=== PATIENT | female | born 1950 | race Caucasian/White ===

== ENCOUNTER 2021-09-18 09:30 | Outpatient (RCR) | payer MEDICARE, SELFPAY | END 2021-10-01 14:09 | disposition home or self-care (01) | PROVIDERS: PCP Family Medicine; Visit Provider Internal Medicine Pulmonary Disease | DX: J44.9 Chronic obstructive pulmonary disease, unspecified (principal) | CPT/HCPCS: 93798; 94625 ==

== ENCOUNTER 2023-11-10 10:45 | Inpatient (IN) | payer OTHER, MEDICARE, SELFPAY ==
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
[2023-11-10 11:00] VITALS: BP 144/58; PULSE 78; RESP 16; TEMP 36.2; O2SAT 95
[2023-11-10 11:31] VITALS: BMI 44.8
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
[2023-11-10] MEDS: methocarbamoL 500 MG TABLET PO ×2 (13:03→16:34)
[2023-11-10 16:00] VITALS: BP 125/62; PULSE 78; RESP 16; TEMP 36.2; O2SAT 95
[2023-11-10] MEDS: GABAPENTIN 100 MG CAPSULE PO ×2 (16:32→21:43)
[2023-11-10] MEDS: carBAMazepine 200 MG TABLET 100 MG BY MOUTH (16:32)
[2023-11-10] MEDS: traMADol HCL (*CRX) 50 MG TABLET PO ×2 (16:33→22:50)
[2023-11-10] MEDS: lisinopriL 10 MG TABLET BY MOUTH (16:34)
[2023-11-10] MEDS: ARFORMOTEROL TARTRATE 15 MCG/2 ML NEB INHALATION (16:38)
[2023-11-10] MEDS: BUDESONIDE RESPULE NEB 0.5 MG/2 ML AMP 0.25 MG INHALATION (16:38)
[2023-11-10 17:00] VITALS: PULSE 78; RESP 16; O2SAT 95
--- NOTE | 2023-11-10 17:41 | PC.NURSE ---
Ornamental Painter received report from Nurse Sparrow at [facility].
[2023-11-10 17:45] VITALS: PULSE 84; RESP 16; O2SAT 98
[2023-11-10] MEDS: azaTHIOprine 25 MG TABLET 75 MG BY MOUTH (21:43)
[2023-11-10] MEDS: QUEtiapine FUMARATE 25 MG TABLET 50 MG BY MOUTH (21:43)
[2023-11-11] VITALS (9 sets, daily range): BP systolic 101–140; BP diastolic 42–65; PULSE 67–74; RESP 13–20; TEMP 35.9–36.6; O2SAT 94–100
[2023-11-11] MEDS: BUDESONIDE RESPULE NEB 0.5 MG/2 ML AMP 0.25 MG INHALATION ×2 (05:37→18:00)
[2023-11-11] MEDS: ARFORMOTEROL TARTRATE 15 MCG/2 ML NEB INHALATION ×2 (05:48→18:01)
[2023-11-11] MEDS: LEVOTHYROXINE SODIUM 112 MCG TABLET PO (06:15)
[2023-11-11] MEDS: GABAPENTIN 100 MG CAPSULE PO ×3 (06:15→21:54)
[2023-11-11] MEDS: predniSONE 1 MG TABLET 4 MG BY MOUTH (08:18)
[2023-11-11] MEDS: methocarbamoL 500 MG TABLET PO ×3 (08:19→17:12)
[2023-11-11] MEDS: buPROPion HCL XL (24 HR) 150 MG TABCR 450 MG PO (08:19)
[2023-11-11] MEDS: amLODIPine BESYLATE 5 MG TABLET PO (08:20)
[2023-11-11] MEDS: lisinopriL 10 MG TABLET BY MOUTH ×2 (08:21→17:12)
[2023-11-11] MEDS: SPIRONOLACTONE 25 MG TABLET BY MOUTH (08:21)
[2023-11-11] MEDS: carBAMazepine 200 MG TABLET 100 MG BY MOUTH ×2 (08:21→17:11)
[2023-11-11] MEDS: traMADol HCL (*CRX) 50 MG TABLET PO (08:22)
[2023-11-11] MEDS: PANTOPRAZOLE 40 MG TABLET PO (08:23)
--- NOTE | 2023-11-11 10:20 | PM.EVENT ---
Event Note Event Note Event Note: No new complaints today. Patient had questions about timing her Neurontin with her Synthroid in the morning as it helps her get move in in the morning. We will discuss this with pharmacy to see if that can be arranged. We added senna and Colace once daily for constipation and MiraLax p.r.n..Ursodil continued per patient request this is a non formulary medication and family will be bringing that in today for her use.
[2023-11-11] MEDS: ACETAMINOPHEN 500 MG TABLET 1000 MG BY MOUTH ×2 (13:36→21:54)
[2023-11-11] MEDS: oxyCODONE HCL (*CRX) 5 MG TAB IR PO (14:30)
--- NOTE | 2023-11-11 15:54 | PC.NURSE ---
Wound care completed on patietn's legs. RLE wound is approximately quarter sized and shows signs of new tissue granulation. Wet to dry dressing reapplied and mepilex applied for comfort. LLE wound had a simple dry dressing with clear dressing over it. Wound is superficial and draining moderate amount of brown fluid and has some yellowing in the wound bed. Conduit Cleaner cleansed wound well with NS and clean gauze. Conduit Cleaner then applied a piece of Mepilex AG to the wound bed and covered with dry Mepilex. Patient tolerated wound care well.
--- NOTE | 2023-11-11 16:00 | PC.NURSE ---
Charge nurse notified of observations made of patient's wounds
[2023-11-11] MEDS: azaTHIOprine 25 MG TABLET 75 MG BY MOUTH (21:54)
[2023-11-11] MEDS: QUEtiapine FUMARATE 25 MG TABLET 50 MG BY MOUTH (21:54)
[2023-11-12] MEDS: GABAPENTIN 100 MG CAPSULE PO ×3 (06:00→21:30)
[2023-11-12] MEDS: LEVOTHYROXINE SODIUM 112 MCG TABLET PO (06:00)
[2023-11-12 08:00] VITALS: BP 114/57; PULSE 67; RESP 18; TEMP 35.8; O2SAT 99
[2023-11-12] MEDS: amLODIPine BESYLATE 5 MG TABLET PO (09:17)
[2023-11-12] MEDS: SPIRONOLACTONE 25 MG TABLET BY MOUTH (09:17)
[2023-11-12] MEDS: traMADol HCL (*CRX) 50 MG TABLET PO (09:18)
[2023-11-12] MEDS: methocarbamoL 500 MG TABLET PO ×3 (09:18→17:43)
[2023-11-12] MEDS: DOCUSATE SODIUM 100 MG CAPSULE PO (09:18)
[2023-11-12] MEDS: BISACODYL 5 MG TABLET EC PO (09:18)
[2023-11-12] MEDS: lisinopriL 10 MG TABLET BY MOUTH ×2 (09:19→17:43)
[2023-11-12] MEDS: BUDESONIDE RESPULE NEB 0.5 MG/2 ML AMP 0.25 MG INHALATION ×2 (09:19→19:20)
[2023-11-12] MEDS: PANTOPRAZOLE 40 MG TABLET PO (09:19)
[2023-11-12] MEDS: ENOXAPARIN 40 MG/0.4 ML SYRINGE SUB-Q (09:19)
[2023-11-12] MEDS: ARFORMOTEROL TARTRATE 15 MCG/2 ML NEB INHALATION ×2 (09:20→19:20)
[2023-11-12] MEDS: predniSONE 1 MG TABLET 4 MG BY MOUTH (09:23)
[2023-11-12] MEDS: buPROPion HCL XL (24 HR) 150 MG TABCR 450 MG PO (09:23)
[2023-11-12] MEDS: carBAMazepine 200 MG TABLET 100 MG BY MOUTH ×2 (09:24→17:43)
[2023-11-12 10:15] VITALS: PULSE 67; RESP 18; O2SAT 99
[2023-11-12 10:16] VITALS: PULSE 70; RESP 18; O2SAT 99
[2023-11-12 11:54] LABS: Glucose Point of Care 161 mg/dl (65-105)
[2023-11-12 16:10] VITALS: BP 128/53; PULSE 77; RESP 16; TEMP 36.3; O2SAT 96
[2023-11-12 16:53] LABS: Glucose Point of Care 91 mg/dl (65-105)
[2023-11-12 19:20] VITALS: PULSE 76; RESP 16; O2SAT 100
[2023-11-12] MEDS: azaTHIOprine 25 MG TABLET 75 MG BY MOUTH (21:29)
[2023-11-12] MEDS: QUEtiapine FUMARATE 25 MG TABLET 50 MG BY MOUTH (21:30)
[2023-11-12 21:36] LABS: Glucose Point of Care 122 mg/dl (65-105)
[2023-11-12] MEDS: ACETAMINOPHEN 500 MG TABLET 1000 MG BY MOUTH (21:51)
[2023-11-13] VITALS (9 sets, daily range): BP systolic 102–149; BP diastolic 40–70; PULSE 65–80; RESP 16–19; TEMP 35.9–36.7; O2SAT 95–100
--- NOTE | 2023-11-13 04:05 | PC.NURSE ---
Pt asleep and no signs of discomfort noted.
--- NOTE | 2023-11-13 05:07 | PC.NURSE ---
Pt rang for the bedpan and voided 200 ml of clear, harinder urine.
[2023-11-13] MEDS: LEVOTHYROXINE SODIUM 112 MCG TABLET PO (06:35)
[2023-11-13] MEDS: GABAPENTIN 100 MG CAPSULE PO ×3 (06:36→21:00)
[2023-11-13] MEDS: traMADol HCL (*CRX) 50 MG TABLET PO (06:48)
[2023-11-13 07:50] LABS: Glucose Point of Care 117 mg/dl (65-105)
[2023-11-13] MEDS: ENOXAPARIN 40 MG/0.4 ML SYRINGE SUB-Q (08:53)
[2023-11-13] MEDS: carBAMazepine 200 MG TABLET 100 MG BY MOUTH ×2 (08:54→17:29)
[2023-11-13] MEDS: BISACODYL 5 MG TABLET EC PO (08:54)
[2023-11-13] MEDS: buPROPion HCL XL (24 HR) 150 MG TABCR 450 MG PO (08:55)
[2023-11-13] MEDS: amLODIPine BESYLATE 5 MG TABLET PO (08:55)
[2023-11-13] MEDS: SPIRONOLACTONE 25 MG TABLET BY MOUTH (08:56)
[2023-11-13] MEDS: oxyCODONE HCL (*CRX) 5 MG TAB IR PO (08:56)
[2023-11-13] MEDS: lisinopriL 10 MG TABLET BY MOUTH ×2 (08:57→17:29)
[2023-11-13] MEDS: predniSONE 1 MG TABLET 4 MG BY MOUTH (08:58)
[2023-11-13] MEDS: DOCUSATE SODIUM 100 MG CAPSULE PO (08:59)
[2023-11-13] MEDS: methocarbamoL 500 MG TABLET PO ×3 (08:59→17:29)
[2023-11-13] MEDS: PANTOPRAZOLE 40 MG TABLET PO (08:59)
[2023-11-13] MEDS: ARFORMOTEROL TARTRATE 15 MCG/2 ML NEB INHALATION ×2 (09:04→17:30)
[2023-11-13] MEDS: BUDESONIDE RESPULE NEB 0.5 MG/2 ML AMP 0.25 MG INHALATION ×2 (09:04→17:30)
[2023-11-13 11:37] LABS: Glucose Point of Care 131 mg/dl (65-105)
[2023-11-13 16:51] LABS: Glucose Point of Care 135 mg/dl (65-105)
[2023-11-13] MEDS: QUEtiapine FUMARATE 25 MG TABLET 50 MG BY MOUTH (21:00)
[2023-11-13] MEDS: azaTHIOprine 25 MG TABLET 75 MG BY MOUTH (21:00)
[2023-11-13] MEDS: ACETAMINOPHEN 500 MG TABLET 1000 MG BY MOUTH (21:01)
[2023-11-13 21:15] LABS: Glucose Point of Care 104 mg/dl (65-105)
[2023-11-14] VITALS (7 sets, daily range): BP systolic 121–145; BP diastolic 61–64; PULSE 63–89; RESP 16–18; TEMP 35.9–36.2; O2SAT 93–100
[2023-11-14] MEDS: BUDESONIDE RESPULE NEB 0.5 MG/2 ML AMP 0.25 MG INHALATION ×2 (05:39→16:59)
[2023-11-14] MEDS: ARFORMOTEROL TARTRATE 15 MCG/2 ML NEB INHALATION ×2 (05:39→17:01)
[2023-11-14] MEDS: GABAPENTIN 100 MG CAPSULE PO ×3 (06:34→21:48)
[2023-11-14] MEDS: LEVOTHYROXINE SODIUM 112 MCG TABLET PO (06:34)
[2023-11-14] MEDS: oxyCODONE HCL (*CRX) 5 MG TAB IR PO (06:34)
[2023-11-14] MEDS: ENOXAPARIN 40 MG/0.4 ML SYRINGE SUB-Q (08:35)
[2023-11-14] MEDS: buPROPion HCL XL (24 HR) 150 MG TABCR 450 MG PO (08:36)
[2023-11-14] MEDS: BISACODYL 5 MG TABLET EC PO (08:37)
[2023-11-14] MEDS: methocarbamoL 500 MG TABLET PO ×3 (08:37→17:11)
[2023-11-14] MEDS: carBAMazepine 200 MG TABLET 100 MG BY MOUTH ×2 (08:38→17:10)
[2023-11-14] MEDS: SPIRONOLACTONE 25 MG TABLET BY MOUTH (08:38)
[2023-11-14] MEDS: amLODIPine BESYLATE 5 MG TABLET PO (08:39)
[2023-11-14] MEDS: PANTOPRAZOLE 40 MG TABLET PO (08:39)
[2023-11-14] MEDS: DOCUSATE SODIUM 100 MG CAPSULE PO (08:39)
[2023-11-14] MEDS: lisinopriL 10 MG TABLET BY MOUTH ×2 (08:40→17:11)
[2023-11-14] MEDS: predniSONE 1 MG TABLET 4 MG BY MOUTH (09:28)
[2023-11-14] MEDS: COLLAGENASE OINT 30 GM TUBE 1 APPLIC TOPICAL (09:28)
[2023-11-14] MEDS: traMADol HCL (*CRX) 50 MG TABLET PO (11:17)
[2023-11-14 11:29] LABS: Glucose Point of Care 143 mg/dl (65-105)
[2023-11-14 11:29] LABS: Glucose Point of Care 111 mg/dl (65-105)
--- NOTE | 2023-11-14 13:28 | PHAR ---
RX from home identified. [facility] pharmacy RX#[id number] Ursodiol 250 mg tablet - take 3 tablets twice daily
--- NOTE | 2023-11-14 18:13 | PC.NURSE ---
Dressing changes complete to wounds. RLE received santyl and dry dressing. LLE received wet to dry dressing and mepilex. Protective mepilexes changed . Patient tolerated well.
[2023-11-14] MEDS: azaTHIOprine 25 MG TABLET 75 MG BY MOUTH (21:48)
[2023-11-14] MEDS: QUEtiapine FUMARATE 25 MG TABLET 50 MG BY MOUTH (21:48)
[2023-11-14 21:52] LABS: Glucose Point of Care 105 mg/dl (65-105)
[2023-11-14 21:52] LABS: Glucose Point of Care 128 mg/dl (65-105)
[2023-11-14] MEDS: ACETAMINOPHEN 500 MG TABLET 1000 MG BY MOUTH (22:12)
[2023-11-15] VITALS (7 sets, daily range): BP systolic 108–170; BP diastolic 46–70; PULSE 63–74; RESP 16–18; TEMP 36.2; O2SAT 96–99
[2023-11-15] MEDS: ARFORMOTEROL TARTRATE 15 MCG/2 ML NEB INHALATION ×2 (05:38→16:27)
[2023-11-15] MEDS: BUDESONIDE RESPULE NEB 0.5 MG/2 ML AMP 0.25 MG INHALATION ×2 (05:38→16:28)
[2023-11-15] MEDS: GABAPENTIN 100 MG CAPSULE PO ×3 (06:21→21:59)
[2023-11-15] MEDS: LEVOTHYROXINE SODIUM 112 MCG TABLET PO (06:21)
[2023-11-15 07:49] LABS: Glucose Point of Care 117 mg/dl (65-105)
[2023-11-15] MEDS: ENOXAPARIN 40 MG/0.4 ML SYRINGE SUB-Q (08:05)
[2023-11-15] MEDS: amLODIPine BESYLATE 5 MG TABLET PO (08:06)
[2023-11-15] MEDS: DOCUSATE SODIUM 100 MG CAPSULE PO (08:06)
[2023-11-15] MEDS: SPIRONOLACTONE 25 MG TABLET BY MOUTH (08:07)
[2023-11-15] MEDS: methocarbamoL 500 MG TABLET PO ×3 (08:07→17:08)
[2023-11-15] MEDS: buPROPion HCL XL (24 HR) 150 MG TABCR 450 MG PO (08:07)
[2023-11-15] MEDS: predniSONE 1 MG TABLET 4 MG BY MOUTH (08:08)
[2023-11-15] MEDS: traMADol HCL (*CRX) 50 MG TABLET PO (08:09)
[2023-11-15] MEDS: PANTOPRAZOLE 40 MG TABLET PO (08:10)
[2023-11-15] MEDS: lisinopriL 10 MG TABLET BY MOUTH ×2 (08:11→17:08)
[2023-11-15] MEDS: carBAMazepine 200 MG TABLET 100 MG BY MOUTH ×2 (08:11→17:09)
[2023-11-15] MEDS: COLLAGENASE OINT 30 GM TUBE 1 APPLIC TOPICAL (08:12)
[2023-11-15] MEDS: oxyCODONE HCL (*CRX) 5 MG TAB IR PO (10:05)
[2023-11-15 11:55] LABS: Glucose Point of Care 144 mg/dl (65-105)
[2023-11-15 16:52] LABS: Glucose Point of Care 119 mg/dl (65-105)
--- NOTE | 2023-11-15 18:38 | PC.NURSE ---
Wound care completed on patient. RLE wound shows significant improvement. LLE wound has new granulation in bed. Patient tolerated wound care well. No s/s infection noted to either wound.
[2023-11-15] MEDS: ACETAMINOPHEN 500 MG TABLET 1000 MG BY MOUTH (21:58)
[2023-11-15] MEDS: azaTHIOprine 25 MG TABLET 75 MG BY MOUTH (21:58)
[2023-11-15] MEDS: QUEtiapine FUMARATE 25 MG TABLET 50 MG BY MOUTH (21:59)
[2023-11-15 22:11] LABS: Glucose Point of Care 119 mg/dl (65-105)
[2023-11-16] VITALS (7 sets, daily range): BP systolic 127–142; BP diastolic 54–76; PULSE 62–76; RESP 16–20; TEMP 35.8–36.4; O2SAT 96–99
[2023-11-16] MEDS: BUDESONIDE RESPULE NEB 0.5 MG/2 ML AMP 0.25 MG INHALATION ×2 (05:35→16:21)
[2023-11-16] MEDS: ARFORMOTEROL TARTRATE 15 MCG/2 ML NEB INHALATION ×2 (05:35→16:22)
[2023-11-16] MEDS: GABAPENTIN 100 MG CAPSULE PO ×3 (05:54→21:55)
[2023-11-16] MEDS: predniSONE 1 MG TABLET 4 MG BY MOUTH (05:54)
[2023-11-16] MEDS: LEVOTHYROXINE SODIUM 112 MCG TABLET PO (05:54)
[2023-11-16 07:49] LABS: Glucose Point of Care 107 mg/dl (65-105)
[2023-11-16] MEDS: ENOXAPARIN 40 MG/0.4 ML SYRINGE SUB-Q (09:17)
[2023-11-16] MEDS: PANTOPRAZOLE 40 MG TABLET PO (09:18)
[2023-11-16] MEDS: lisinopriL 10 MG TABLET BY MOUTH ×2 (09:18→16:51)
[2023-11-16] MEDS: methocarbamoL 500 MG TABLET PO ×3 (09:18→16:51)
[2023-11-16] MEDS: DOCUSATE SODIUM 100 MG CAPSULE PO (09:18)
[2023-11-16] MEDS: BISACODYL 5 MG TABLET EC PO (09:20)
[2023-11-16] MEDS: buPROPion HCL XL (24 HR) 150 MG TABCR 450 MG PO (09:20)
[2023-11-16] MEDS: SPIRONOLACTONE 25 MG TABLET BY MOUTH (09:20)
[2023-11-16] MEDS: amLODIPine BESYLATE 5 MG TABLET PO (09:20)
[2023-11-16] MEDS: carBAMazepine 200 MG TABLET 100 MG BY MOUTH ×2 (09:22→16:51)
[2023-11-16] MEDS: oxyCODONE HCL (*CRX) 5 MG TAB IR PO (09:27)
[2023-11-16] MEDS: COLLAGENASE OINT 30 GM TUBE 1 APPLIC TOPICAL (10:16)
[2023-11-16 11:54] LABS: Glucose Point of Care 100 mg/dl (65-105)
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
[2023-11-16] MEDS: traMADol HCL (*CRX) 50 MG TABLET PO (15:58)
[2023-11-16 16:55] LABS: Glucose Point of Care 155 mg/dl (65-105)
[2023-11-16] MEDS: ACETAMINOPHEN 500 MG TABLET 1000 MG BY MOUTH (21:55)
[2023-11-16] MEDS: QUEtiapine FUMARATE 25 MG TABLET 50 MG BY MOUTH (21:55)
[2023-11-16] MEDS: azaTHIOprine 25 MG TABLET 75 MG BY MOUTH (21:55)
[2023-11-16 22:04] LABS: Glucose Point of Care 126 mg/dl (65-105)
[2023-11-17] VITALS (7 sets, daily range): BP systolic 113–129; BP diastolic 45–62; PULSE 65–69; RESP 16–18; TEMP 35.7–36.4; O2SAT 96–99
--- NOTE | 2023-11-17 02:10 | PC.NURSE ---
This RN attempted to turn and position pt and pt refused stating she is comfortable for the time being. This RN inquired if the pt had any other needs at this time to which she denied. Pt's door shut per pt request. Bed in lowest position, side railsx4 per pt's request, call light w/in reach for pt safety.
[2023-11-17] MEDS: ARFORMOTEROL TARTRATE 15 MCG/2 ML NEB INHALATION ×2 (05:39→16:26)
[2023-11-17] MEDS: BUDESONIDE RESPULE NEB 0.5 MG/2 ML AMP 0.25 MG INHALATION ×2 (05:39→16:27)
[2023-11-17] MEDS: GABAPENTIN 100 MG CAPSULE PO ×3 (06:10→21:10)
[2023-11-17] MEDS: predniSONE 1 MG TABLET 4 MG BY MOUTH (06:10)
[2023-11-17] MEDS: LEVOTHYROXINE SODIUM 112 MCG TABLET PO (06:11)
[2023-11-17] MEDS: traMADol HCL (*CRX) 50 MG TABLET PO (06:11)
[2023-11-17 07:49] LABS: Glucose Point of Care 104 mg/dl (65-105)
[2023-11-17] MEDS: buPROPion HCL XL (24 HR) 150 MG TABCR 450 MG PO (09:19)
[2023-11-17] MEDS: CHOLECALCIFEROL 1,000 UNITS TABLET 4000 UNITS PO (09:19)
[2023-11-17] MEDS: ENOXAPARIN 40 MG/0.4 ML SYRINGE SUB-Q (09:19)
[2023-11-17] MEDS: COLLAGENASE OINT 30 GM TUBE 1 APPLIC TOPICAL (09:19)
[2023-11-17] MEDS: amLODIPine BESYLATE 5 MG TABLET PO (09:20)
[2023-11-17] MEDS: PANTOPRAZOLE 40 MG TABLET PO (09:20)
[2023-11-17] MEDS: carBAMazepine 200 MG TABLET 100 MG BY MOUTH ×2 (09:20→17:41)
[2023-11-17] MEDS: DOCUSATE SODIUM 100 MG CAPSULE PO (09:20)
[2023-11-17] MEDS: SPIRONOLACTONE 25 MG TABLET BY MOUTH (09:20)
[2023-11-17] MEDS: BISACODYL 5 MG TABLET EC PO (09:20)
[2023-11-17] MEDS: lisinopriL 10 MG TABLET BY MOUTH ×2 (09:20→17:40)
[2023-11-17] MEDS: methocarbamoL 500 MG TABLET PO ×3 (09:20→17:41)
[2023-11-17 11:49] LABS: Glucose Point of Care 120 mg/dl (65-105)
[2023-11-17] MEDS: oxyCODONE HCL (*CRX) 5 MG TAB IR PO (14:49)
[2023-11-17] MEDS: ACETAMINOPHEN 500 MG TABLET 1000 MG BY MOUTH (21:10)
[2023-11-17] MEDS: QUEtiapine FUMARATE 25 MG TABLET 50 MG BY MOUTH (21:10)
[2023-11-17] MEDS: azaTHIOprine 25 MG TABLET 75 MG BY MOUTH (21:10)
[2023-11-18] VITALS: BP 97/36; PULSE 71; RESP 15; TEMP 36.6; O2SAT 92
[2023-11-18 05:50] VITALS: PULSE 66; RESP 16; O2SAT 96
[2023-11-18] MEDS: ARFORMOTEROL TARTRATE 15 MCG/2 ML NEB INHALATION ×2 (05:50→17:55)
[2023-11-18] MEDS: BUDESONIDE RESPULE NEB 0.5 MG/2 ML AMP 0.25 MG INHALATION ×2 (05:50→17:54)
[2023-11-18 06:12] VITALS: PULSE 68; RESP 16; O2SAT 99
[2023-11-18] MEDS: GABAPENTIN 100 MG CAPSULE PO ×3 (06:46→21:46)
[2023-11-18] MEDS: predniSONE 1 MG TABLET 4 MG BY MOUTH (06:46)
[2023-11-18] MEDS: traMADol HCL (*CRX) 50 MG TABLET PO ×2 (06:47→23:46)
[2023-11-18] MEDS: LEVOTHYROXINE SODIUM 112 MCG TABLET PO (06:47)
[2023-11-18 08:00] VITALS: BP 130/59; PULSE 67; RESP 17; TEMP 36.2; O2SAT 96
[2023-11-18] MEDS: ENOXAPARIN 40 MG/0.4 ML SYRINGE SUB-Q (09:55)
[2023-11-18] MEDS: CHOLECALCIFEROL 1,000 UNITS TABLET 4000 UNITS PO (09:56)
[2023-11-18] MEDS: DOCUSATE SODIUM 100 MG CAPSULE PO (09:56)
[2023-11-18] MEDS: COLLAGENASE OINT 30 GM TUBE 1 APPLIC TOPICAL (09:56)
[2023-11-18] MEDS: buPROPion HCL XL (24 HR) 150 MG TABCR 450 MG PO (09:56)
[2023-11-18] MEDS: methocarbamoL 500 MG TABLET PO ×3 (09:56→17:55)
[2023-11-18] MEDS: PANTOPRAZOLE 40 MG TABLET PO (09:57)
[2023-11-18] MEDS: lisinopriL 10 MG TABLET BY MOUTH ×2 (09:57→17:55)
[2023-11-18] MEDS: SPIRONOLACTONE 25 MG TABLET BY MOUTH (09:57)
[2023-11-18] MEDS: amLODIPine BESYLATE 5 MG TABLET PO (09:57)
[2023-11-18] MEDS: carBAMazepine 200 MG TABLET 100 MG BY MOUTH ×2 (09:57→17:55)
[2023-11-18] MEDS: BISACODYL 5 MG TABLET EC PO (09:57)
[2023-11-18] MEDS: oxyCODONE HCL (*CRX) 5 MG TAB IR PO (10:15)
[2023-11-18 16:00] VITALS: BP 117/51; PULSE 77; RESP 17; TEMP 36.2; O2SAT 97
[2023-11-18 20:00] VITALS: PULSE 77; RESP 17; O2SAT 97
[2023-11-18] MEDS: azaTHIOprine 25 MG TABLET 75 MG BY MOUTH (21:25)
[2023-11-18] MEDS: QUEtiapine FUMARATE 25 MG TABLET 50 MG BY MOUTH (21:26)
[2023-11-19] VITALS: BP 118/48; PULSE 72; RESP 18; TEMP 36.5; O2SAT 96
[2023-11-19] MEDS: ACETAMINOPHEN 500 MG TABLET 1000 MG BY MOUTH ×2 (03:04→21:19)
[2023-11-19 05:57] VITALS: PULSE 72; RESP 18; O2SAT 96
[2023-11-19] MEDS: GABAPENTIN 100 MG CAPSULE PO ×3 (06:00→21:19)
[2023-11-19] MEDS: LEVOTHYROXINE SODIUM 112 MCG TABLET PO (06:00)
[2023-11-19] MEDS: predniSONE 1 MG TABLET 4 MG BY MOUTH (06:00)
[2023-11-19] MEDS: BUDESONIDE RESPULE NEB 0.5 MG/2 ML AMP 0.25 MG INHALATION ×2 (06:06→18:58)
[2023-11-19] MEDS: ARFORMOTEROL TARTRATE 15 MCG/2 ML NEB INHALATION ×2 (06:07→18:58)
[2023-11-19 06:25] VITALS: PULSE 72; RESP 18; O2SAT 98
[2023-11-19 08:00] VITALS: BP 138/53; PULSE 69; RESP 18; TEMP 36.1; O2SAT 98
[2023-11-19] MEDS: COLLAGENASE OINT 30 GM TUBE 1 APPLIC TOPICAL (10:00)
[2023-11-19] MEDS: ENOXAPARIN 40 MG/0.4 ML SYRINGE SUB-Q (10:00)
[2023-11-19] MEDS: DOCUSATE SODIUM 100 MG CAPSULE PO (10:01)
[2023-11-19] MEDS: amLODIPine BESYLATE 5 MG TABLET PO (10:02)
[2023-11-19] MEDS: buPROPion HCL XL (24 HR) 150 MG TABCR 450 MG PO (10:02)
[2023-11-19] MEDS: PANTOPRAZOLE 40 MG TABLET PO (10:02)
[2023-11-19] MEDS: CHOLECALCIFEROL 1,000 UNITS TABLET 4000 UNITS PO (10:02)
[2023-11-19] MEDS: lisinopriL 10 MG TABLET BY MOUTH ×2 (10:03→17:48)
[2023-11-19] MEDS: methocarbamoL 500 MG TABLET PO ×3 (10:03→17:48)
[2023-11-19] MEDS: SPIRONOLACTONE 25 MG TABLET BY MOUTH (10:03)
[2023-11-19] MEDS: carBAMazepine 200 MG TABLET 100 MG BY MOUTH ×2 (10:03→17:48)
[2023-11-19 16:00] VITALS: BP 143/50; PULSE 72; RESP 20; TEMP 36.4; O2SAT 98
[2023-11-19 18:34] LABS: Appearance Urine Clear (Clear); Bilirubin Urine Negative (Negative); Blood Urine Negative (Negative); Color Urine Light Yellow (Yellow); Glucose Urine UA Negative (Negative); Ketones Urine Negative (Negative); Leukocyte Esterase Ur Negative (Negative); Nitrate Urine Negative (Negative); Protein Urine Negative (Negative); Urobilinogen Urine 0.2 mg/dL (0.2-1.0)
[2023-11-19 18:36] LABS: Add Urine Microscopic? NO
[2023-11-19 20:00] VITALS: PULSE 72; RESP 20; O2SAT 98
[2023-11-19] MEDS: azaTHIOprine 25 MG TABLET 75 MG BY MOUTH (21:18)
[2023-11-19] MEDS: QUEtiapine FUMARATE 25 MG TABLET 50 MG BY MOUTH (21:18)
[2023-11-19] MEDS: CEPHALEXIN 500 MG CAPSULE PO (21:19)
[2023-11-20] VITALS: BP 117/49; PULSE 76; RESP 17; TEMP 36.1; O2SAT 97
[2023-11-20] MEDS: traMADol HCL (*CRX) 50 MG TABLET PO (02:43)
[2023-11-20] MEDS: GABAPENTIN 100 MG CAPSULE PO ×3 (05:13→21:16)
[2023-11-20] MEDS: LEVOTHYROXINE SODIUM 112 MCG TABLET PO (05:14)
[2023-11-20] MEDS: predniSONE 1 MG TABLET 4 MG BY MOUTH (05:14)
[2023-11-20 05:15] VITALS: PULSE 76; RESP 17; O2SAT 95
[2023-11-20] MEDS: ARFORMOTEROL TARTRATE 15 MCG/2 ML NEB INHALATION ×2 (05:15→18:58)
[2023-11-20] MEDS: BUDESONIDE RESPULE NEB 0.5 MG/2 ML AMP 0.25 MG INHALATION ×2 (05:15→18:58)
[2023-11-20 06:00] VITALS: PULSE 72; RESP 17; O2SAT 98
[2023-11-20 08:00] VITALS: BP 150/74; PULSE 66; RESP 20; TEMP 36.1; O2SAT 98
[2023-11-20] MEDS: CHOLECALCIFEROL 1,000 UNITS TABLET 4000 UNITS PO (10:06)
[2023-11-20] MEDS: buPROPion HCL XL (24 HR) 150 MG TABCR 450 MG PO (10:06)
[2023-11-20] MEDS: SPIRONOLACTONE 25 MG TABLET BY MOUTH (10:07)
[2023-11-20] MEDS: amLODIPine BESYLATE 5 MG TABLET PO (10:07)
[2023-11-20] MEDS: ENOXAPARIN 40 MG/0.4 ML SYRINGE SUB-Q (10:07)
[2023-11-20] MEDS: lisinopriL 10 MG TABLET BY MOUTH ×2 (10:07→17:28)
[2023-11-20] MEDS: methocarbamoL 500 MG TABLET PO ×3 (10:07→17:28)
[2023-11-20] MEDS: CEPHALEXIN 500 MG CAPSULE PO ×2 (10:07→21:16)
[2023-11-20] MEDS: PANTOPRAZOLE 40 MG TABLET PO (10:07)
[2023-11-20] MEDS: COLLAGENASE OINT 30 GM TUBE 1 APPLIC TOPICAL (10:07)
[2023-11-20] MEDS: carBAMazepine 200 MG TABLET 100 MG BY MOUTH ×2 (10:08→17:28)
[2023-11-20] MEDS: oxyCODONE HCL (*CRX) 5 MG TAB IR PO (13:54)
[2023-11-20 16:00] VITALS: BP 134/55; PULSE 66; RESP 20; TEMP 35.8; O2SAT 97
[2023-11-20 20:00] VITALS: PULSE 66; RESP 20; O2SAT 97
[2023-11-20] MEDS: QUEtiapine FUMARATE 25 MG TABLET 50 MG BY MOUTH (21:16)
[2023-11-20] MEDS: ACETAMINOPHEN 500 MG TABLET 1000 MG BY MOUTH (21:16)
[2023-11-20] MEDS: azaTHIOprine 25 MG TABLET 75 MG BY MOUTH (21:16)
[2023-11-21] VITALS (8 sets, daily range): BP systolic 115–142; BP diastolic 52–64; PULSE 60–73; RESP 16–20; TEMP 35.9–36; O2SAT 96–99
[2023-11-21] MEDS: BUDESONIDE RESPULE NEB 0.5 MG/2 ML AMP 0.25 MG INHALATION ×2 (05:34→16:27)
[2023-11-21] MEDS: ARFORMOTEROL TARTRATE 15 MCG/2 ML NEB INHALATION ×2 (05:34→16:27)
[2023-11-21] MEDS: LEVOTHYROXINE SODIUM 112 MCG TABLET PO (05:57)
[2023-11-21] MEDS: predniSONE 1 MG TABLET 4 MG BY MOUTH (05:57)
[2023-11-21] MEDS: GABAPENTIN 100 MG CAPSULE PO ×3 (05:57→21:34)
[2023-11-21] MEDS: traMADol HCL (*CRX) 50 MG TABLET PO ×2 (06:04→13:31)
[2023-11-21] MEDS: CHOLECALCIFEROL 1,000 UNITS TABLET 4000 UNITS PO (09:15)
[2023-11-21] MEDS: CEPHALEXIN 500 MG CAPSULE PO ×2 (09:15→21:34)
[2023-11-21] MEDS: carBAMazepine 200 MG TABLET 100 MG BY MOUTH ×2 (09:16→17:04)
[2023-11-21] MEDS: SPIRONOLACTONE 25 MG TABLET BY MOUTH (09:16)
[2023-11-21] MEDS: amLODIPine BESYLATE 5 MG TABLET PO (09:16)
[2023-11-21] MEDS: ENOXAPARIN 40 MG/0.4 ML SYRINGE SUB-Q (09:16)
[2023-11-21] MEDS: COLLAGENASE OINT 30 GM TUBE 1 APPLIC TOPICAL (09:16)
[2023-11-21] MEDS: PANTOPRAZOLE 40 MG TABLET PO (09:16)
[2023-11-21] MEDS: lisinopriL 10 MG TABLET BY MOUTH ×2 (09:16→17:04)
[2023-11-21] MEDS: buPROPion HCL XL (24 HR) 150 MG TABCR 450 MG PO (09:16)
[2023-11-21] MEDS: methocarbamoL 500 MG TABLET PO ×3 (09:16→17:04)
[2023-11-21] MEDS: azaTHIOprine 25 MG TABLET 75 MG BY MOUTH (21:34)
[2023-11-21] MEDS: ACETAMINOPHEN 500 MG TABLET 1000 MG BY MOUTH (21:35)
[2023-11-21] MEDS: QUEtiapine FUMARATE 25 MG TABLET 50 MG BY MOUTH (21:35)
[2023-11-22] VITALS (7 sets, daily range): BP systolic 121–134; BP diastolic 58–66; PULSE 66–78; RESP 16–18; TEMP 35.8–36.3; O2SAT 96–98
[2023-11-22 05:19] LABS: Hematocrit 30.7 % (35.0-42.0); Hemoglobin 9.6 g/dL (11.7-13.8); Mean Corpuscular HGB Conc 31.3 g/dL (32-36); Mean Corpuscular Hemoglobin 32.9 pg (27.0-31.0); Mean Corpuscular Volume 105.1 fL (78.0-102.0); Mean Platelet Volume 10.5 fl (9.2-11.8); Platelet Count Result 156 K/mm3 (150-420); Red Blood Count 2.92 M/mm3 (4.20-5.40); Red Cell Distribution Width 14.7 % (11.6-14.4); White Blood Count 4.5 K/mm3 (4.8-10.8)
[2023-11-22] MEDS: ARFORMOTEROL TARTRATE 15 MCG/2 ML NEB INHALATION ×2 (05:37→16:25)
[2023-11-22] MEDS: BUDESONIDE RESPULE NEB 0.5 MG/2 ML AMP 0.25 MG INHALATION ×2 (05:37→16:26)
[2023-11-22] MEDS: LEVOTHYROXINE SODIUM 112 MCG TABLET PO (05:53)
[2023-11-22] MEDS: GABAPENTIN 100 MG CAPSULE PO ×3 (05:53→21:19)
[2023-11-22] MEDS: predniSONE 1 MG TABLET 4 MG BY MOUTH (05:53)
[2023-11-22] MEDS: traMADol HCL (*CRX) 50 MG TABLET PO ×2 (05:54→21:18)
[2023-11-22] MEDS: CHOLECALCIFEROL 1,000 UNITS TABLET 4000 UNITS PO (08:43)
[2023-11-22] MEDS: buPROPion HCL XL (24 HR) 150 MG TABCR 450 MG PO (08:44)
[2023-11-22] MEDS: methocarbamoL 500 MG TABLET PO ×2 (08:44→15:16)
[2023-11-22] MEDS: carBAMazepine 200 MG TABLET 100 MG BY MOUTH ×2 (08:44→18:24)
[2023-11-22] MEDS: CEPHALEXIN 500 MG CAPSULE PO (08:44)
[2023-11-22] MEDS: lisinopriL 10 MG TABLET BY MOUTH ×2 (08:45→18:23)
[2023-11-22] MEDS: SPIRONOLACTONE 25 MG TABLET BY MOUTH (08:45)
[2023-11-22] MEDS: amLODIPine BESYLATE 5 MG TABLET PO (08:45)
[2023-11-22] MEDS: oxyCODONE HCL (*CRX) 5 MG TAB IR PO (08:45)
[2023-11-22] MEDS: PANTOPRAZOLE 40 MG TABLET PO (08:45)
[2023-11-22] MEDS: ENOXAPARIN 40 MG/0.4 ML SYRINGE SUB-Q (08:46)
--- NOTE | 2023-11-22 08:53 | PM.EVENT ---
Event Note Event Note Event Note: I had cultures on patient wound sent off and i started on Kefelex today she had gram positive rods growing with change to Augmentin. Patient has wounds on her legs and she is in need of wound clinic spoke with case management and nursing who is attempting to set her up for a WED appoitnemtn if a ride can be obtained.
[2023-11-22 11:42] LABS: Alanine Aminotransferase 33 U/L (14-59); Albumin Level 2.9 g/dL (3.4-5.0); Alkaline Phosphatase 134 U/L (46-116); Anion Gap 8 mmol/L (4-12); Aspartate Amino Transferase 17 U/L (15-37); Bilirubin,Total 0.3 mg/dL (0.00-1.00); Blood Urea Nitrogen 43 mg/dL (7-18); Calcium 8.7 mg/dL (8.5-10.1); Carbon Dioxide 27 mmol/L (21-32); Chloride 100 mmol/L (98-108); Estimated CRCL calculation 67 ml/min; Estimated Glomerular Filt Rate > 60; Glucose 109 mg/dL (70-99); Osmolality Calculated 291 mOsm/kg (285-295); Potassium 4.8 mmol/L (3.5-5.1); Sodium 135 mmol/L (136-145); Total Protein 5.8 g/dL (6.4-8.2)
--- NOTE | 2023-11-22 12:49 | PC.NURSE ---
Addendum entered by Natalia Lang RN 11/22/23 12:51: Pt left for appointment at 0857. Original Note: Pt transported via wheelchair by [employer] to [facility] to await transportation to Dr appointment in [place].
--- NOTE | 2023-11-22 13:05 | PC.NURSE ---
Pt returned from 's appointment.
[2023-11-22] MEDS: AMOXICILLIN/CLAVULANATE K 875-125 MG TAB 1 TABLET PO ×2 (15:15→21:17)
[2023-11-22] MEDS: COLLAGENASE OINT 30 GM TUBE 1 APPLIC TOPICAL (15:20)
[2023-11-22] MEDS: azaTHIOprine 25 MG TABLET 75 MG BY MOUTH (21:17)
[2023-11-22] MEDS: QUEtiapine FUMARATE 25 MG TABLET 50 MG BY MOUTH (21:18)
[2023-11-23 05:39] VITALS: PULSE 68; RESP 16; O2SAT 97
[2023-11-23] MEDS: BUDESONIDE RESPULE NEB 0.5 MG/2 ML AMP 0.25 MG INHALATION ×2 (05:39→16:16)
[2023-11-23] MEDS: ARFORMOTEROL TARTRATE 15 MCG/2 ML NEB INHALATION ×2 (05:39→16:15)
[2023-11-23 05:54] VITALS: PULSE 66; RESP 16; O2SAT 100
[2023-11-23] MEDS: GABAPENTIN 100 MG CAPSULE PO ×3 (05:57→21:34)
[2023-11-23] MEDS: traMADol HCL (*CRX) 50 MG TABLET PO ×2 (05:58→21:35)
[2023-11-23] MEDS: LEVOTHYROXINE SODIUM 112 MCG TABLET PO (05:59)
[2023-11-23] MEDS: predniSONE 1 MG TABLET 4 MG BY MOUTH (05:59)
[2023-11-23 08:00] VITALS: BP 133/61; PULSE 97; RESP 16; TEMP 35.8; O2SAT 97
--- NOTE | 2023-11-23 09:00 | PC.NURSE ---
Dressing changes deferred today. Pt will be going to wound care appointment this afternoon where they will be assessing and making treatment recommendations.
[2023-11-23] MEDS: CHOLECALCIFEROL 1,000 UNITS TABLET 4000 UNITS PO (09:51)
[2023-11-23] MEDS: buPROPion HCL XL (24 HR) 150 MG TABCR 450 MG PO (09:51)
[2023-11-23] MEDS: ENOXAPARIN 40 MG/0.4 ML SYRINGE SUB-Q (09:51)
[2023-11-23] MEDS: SACCHAROMYCES BOULARDII 250 MG CAPSULE PO ×2 (09:51→17:55)
[2023-11-23] MEDS: AMOXICILLIN/CLAVULANATE K 875-125 MG TAB 1 TABLET PO ×2 (09:51→21:35)
[2023-11-23] MEDS: lisinopriL 10 MG TABLET BY MOUTH ×2 (09:52→17:55)
[2023-11-23] MEDS: carBAMazepine 200 MG TABLET 100 MG BY MOUTH ×2 (09:52→17:55)
[2023-11-23] MEDS: amLODIPine BESYLATE 5 MG TABLET PO (09:52)
[2023-11-23] MEDS: SPIRONOLACTONE 25 MG TABLET BY MOUTH (09:52)
[2023-11-23] MEDS: PANTOPRAZOLE 40 MG TABLET PO (09:52)
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
[2023-11-23] MEDS: oxyCODONE HCL (*CRX) 5 MG TAB IR PO ×2 (12:56→23:26)
--- NOTE | 2023-11-23 13:05 | PC.NURSE ---
Pt assisted into wheelchair by PT staff and wheeled to front lobby to await transportation to would care appointment.
[2023-11-23 16:00] VITALS: BP 130/42; PULSE 67; RESP 18; TEMP 35.8; O2SAT 67
[2023-11-23 16:17] VITALS: PULSE 70; RESP 18; O2SAT 97
[2023-11-23 16:25] VITALS: PULSE 74; RESP 18; O2SAT 98
[2023-11-23] MEDS: QUEtiapine FUMARATE 25 MG TABLET 50 MG BY MOUTH (21:35)
[2023-11-23] MEDS: azaTHIOprine 25 MG TABLET 75 MG BY MOUTH (21:36)
--- NOTE | 2023-11-23 23:58 | PC.NURSE ---
During care at 2330 patient stated she had been to the wound clinic and they said the area to lateral aspect of right leg lower calf is necrotic from lying on right side without turning and will take a long time to heal. Also states she has an area to left upper leg that is infected and needs packing.
[2023-11-24] VITALS (8 sets, daily range): BP systolic 127–147; BP diastolic 52–58; PULSE 64–76; RESP 16–18; TEMP 35.5–36.3; O2SAT 94–99
[2023-11-24 05:18] LABS: Hematocrit 30.3 % (35.0-42.0); Hemoglobin 9.7 g/dL (11.7-13.8); Mean Corpuscular Hemoglobin 33.2 pg (27.0-31.0); Mean Corpuscular Volume 103.8 fL (78.0-102.0); Mean Platelet Volume 11.1 fl (9.2-11.8); Platelet Count Result 157 K/mm3 (150-420); Red Blood Count 2.92 M/mm3 (4.20-5.40); Red Cell Distribution Width 14.6 % (11.6-14.4)
[2023-11-24] MEDS: ARFORMOTEROL TARTRATE 15 MCG/2 ML NEB INHALATION ×2 (05:33→16:23)
[2023-11-24] MEDS: BUDESONIDE RESPULE NEB 0.5 MG/2 ML AMP 0.25 MG INHALATION ×2 (05:33→16:23)
[2023-11-24 05:59] LABS: Folic Acid 14.8 ng/mL (8.6->20); Vitamin B12 690 pg/mL (193-986)
[2023-11-24 06:10] LABS: Iron 91 ug/dL (50-170)
[2023-11-24 06:11] LABS: Percent Iron Saturation 37 % (12-57)
[2023-11-24] MEDS: GABAPENTIN 100 MG CAPSULE PO ×3 (06:27→21:49)
[2023-11-24] MEDS: predniSONE 1 MG TABLET 4 MG BY MOUTH (06:27)
[2023-11-24] MEDS: LEVOTHYROXINE SODIUM 112 MCG TABLET PO (06:27)
--- NOTE | 2023-11-24 07:00 | PC.NURSE ---
Discussion with patient at bedside shift report resulted in patient stating that night nurse misunderstood her and the wound on her right leg is not from pressure. I just wondered if the way I lay could cause pressure on it. Pt was educated on self turning and recognizing pressure related discomfort. Reinforced to patient that she can call to staff at anytime for assistance in repositioning.
[2023-11-24] MEDS: AMOXICILLIN/CLAVULANATE K 875-125 MG TAB 1 TABLET PO ×2 (10:30→21:48)
[2023-11-24] MEDS: SACCHAROMYCES BOULARDII 250 MG CAPSULE PO ×2 (10:30→16:54)
[2023-11-24] MEDS: amLODIPine BESYLATE 5 MG TABLET PO (10:30)
[2023-11-24] MEDS: buPROPion HCL XL (24 HR) 150 MG TABCR 450 MG PO (10:31)
[2023-11-24] MEDS: carBAMazepine 200 MG TABLET 100 MG BY MOUTH ×2 (10:31→16:54)
[2023-11-24] MEDS: lisinopriL 10 MG TABLET BY MOUTH ×2 (10:31→16:54)
[2023-11-24] MEDS: PANTOPRAZOLE 40 MG TABLET PO (10:31)
[2023-11-24] MEDS: CHOLECALCIFEROL 1,000 UNITS TABLET 4000 UNITS PO (10:31)
[2023-11-24] MEDS: COLLAGENASE OINT 30 GM TUBE 1 APPLIC TOPICAL (10:32)
[2023-11-24] MEDS: ENOXAPARIN 40 MG/0.4 ML SYRINGE SUB-Q (10:34)
[2023-11-24] MEDS: SPIRONOLACTONE 25 MG TABLET BY MOUTH (10:38)
[2023-11-24] MEDS: traMADol HCL (*CRX) 50 MG TABLET PO ×2 (10:39→18:19)
[2023-11-24] MEDS: oxyCODONE HCL (*CRX) 5 MG TAB IR PO ×2 (13:37→21:50)
[2023-11-24] MEDS: QUEtiapine FUMARATE 25 MG TABLET 50 MG BY MOUTH (21:49)
[2023-11-24] MEDS: azaTHIOprine 25 MG TABLET 75 MG BY MOUTH (21:49)
[2023-11-25] VITALS: BP 130/59; PULSE 71; RESP 17; TEMP 36.2; O2SAT 96
[2023-11-25] MEDS: ACETAMINOPHEN 500 MG TABLET 1000 MG BY MOUTH (01:05)
[2023-11-25] MEDS: traMADol HCL (*CRX) 50 MG TABLET PO ×2 (05:07→09:42)
[2023-11-25] MEDS: LEVOTHYROXINE SODIUM 112 MCG TABLET PO (05:07)
[2023-11-25] MEDS: predniSONE 1 MG TABLET 4 MG BY MOUTH (05:07)
[2023-11-25] MEDS: GABAPENTIN 100 MG CAPSULE PO ×2 (05:07→13:47)
[2023-11-25 05:42] VITALS: PULSE 62; RESP 16; O2SAT 96
[2023-11-25] MEDS: BUDESONIDE RESPULE NEB 0.5 MG/2 ML AMP 0.25 MG INHALATION (05:42)
[2023-11-25] MEDS: ARFORMOTEROL TARTRATE 15 MCG/2 ML NEB INHALATION (05:42)
[2023-11-25 06:00] VITALS: PULSE 62; RESP 16; O2SAT 100
[2023-11-25 07:40] VITALS: BP 120/53; PULSE 69; RESP 16; TEMP 35.8; O2SAT 96
[2023-11-25] MEDS: ENOXAPARIN 40 MG/0.4 ML SYRINGE SUB-Q (08:57)
[2023-11-25] MEDS: CHOLECALCIFEROL 1,000 UNITS TABLET 4000 UNITS PO (08:57)
[2023-11-25] MEDS: SACCHAROMYCES BOULARDII 250 MG CAPSULE PO (08:58)
[2023-11-25] MEDS: amLODIPine BESYLATE 5 MG TABLET PO (08:58)
[2023-11-25] MEDS: AMOXICILLIN/CLAVULANATE K 875-125 MG TAB 1 TABLET PO (08:58)
[2023-11-25] MEDS: buPROPion HCL XL (24 HR) 150 MG TABCR 450 MG PO (08:58)
[2023-11-25] MEDS: lisinopriL 10 MG TABLET BY MOUTH (08:58)
[2023-11-25] MEDS: carBAMazepine 200 MG TABLET 100 MG BY MOUTH (08:58)
[2023-11-25] MEDS: SPIRONOLACTONE 25 MG TABLET BY MOUTH (08:58)
[2023-11-25] MEDS: COLLAGENASE OINT 30 GM TUBE 1 APPLIC TOPICAL (08:59)
[2023-11-25] MEDS: PANTOPRAZOLE 40 MG TABLET PO (08:59)
[2023-11-25] MEDS: LIDOCAINE 5% PATCH 1 PATCH TRANSDERM (10:56)
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
--- NOTE | 2023-11-25 14:35 | PC.NURSE ---
[facility] This nurse assisted patient to gather all belongings and get them ready for transport. Home medications returned to patient and dressing change supplies including santyl ointment and aquacell ag packing send with patient.
--- NOTE | 2023-11-25 15:35 | PC.NURSE ---
Patient discharging to [facility] in [place]. Patients sister here to transport patient. Patient transferred from chair to wheelchair by PT JT. All belongings gathered together and sent with patient. Discharge instructions and education sent with patient for [facility]. Patient has no IV access at time of discharge. All questions and concerns addressed. Patient left floor via wheelchair accompanied by this nurse and PT JT. Patient assisted into [employer] vehicle, wheelchair van, left via private vehicle with sister.
== END 2023-11-25 15:35 | DRG 560 ==
PROVIDERS: Nurse Practitioner Acute Care; Nurse Practitioner Family; Admitting Provider Internal Medicine; PCP Family Medicine; Visit Provider Nurse Practitioner Acute Care
DX: S82.842D Displaced bimalleolar fracture of left lower leg, subsequent encounter for closed fracture with routine healing (principal); F31.89 Other bipolar disorder; S52.512D Displaced fracture of left radial styloid process, subsequent encounter for closed fracture with routine healing; S22.41XD Multiple fractures of ribs, right side, subsequent encounter for fracture with routine healing; S92.354D Nondisplaced fracture of fifth metatarsal bone, right foot, subsequent encounter for fracture with routine healing; I11.0 Hypertensive heart disease with heart failure; I50.9 Heart failure, unspecified; E03.9 Hypothyroidism, unspecified; J44.9 Chronic obstructive pulmonary disease, unspecified; K44.9 Diaphragmatic hernia without obstruction or gangrene; K75.4 Autoimmune hepatitis; K21.9 Gastro-esophageal reflux disease without esophagitis; M06.9 Rheumatoid arthritis, unspecified; M81.0 Age-related osteoporosis without current pathological fracture; R53.81 Other malaise; G47.39 Other sleep apnea; S71.112D Laceration without foreign body, left thigh, subsequent encounter; S81.811D Laceration without foreign body, right lower leg, subsequent encounter; V89.2XXD Person injured in unspecified motor-vehicle accident, traffic, subsequent encounter; Z87.891 Personal history of nicotine dependence
CPT/HCPCS: 36415; 80053; 81003; 82607; 82746; 82948; 83540; 83550; 85027; 87070; 87205; 94640; 97110; 97161; 97167; 97530; 97535; A9270; J1650